=== PATIENT | male | born 1965 | race Caucasian/White ===

== ENCOUNTER → 2016-11-27 | Outpatient (CLI) | payer SELFPAY ==
--- NOTE | 2016-11-27 15:52 | CT ---
EXAMINATION TYPE: CT heart w calcium score DATE OF EXAM: 11/27/2016 3:36 PM COMPARISON: NONE HISTORY: Screening for cardiovascular disorder. 213.9 CT DLP: 34.6 mGy Automated exposure control for dose reduction was used. CT CALCIUM SCORING Coronary calcium is a marker for plaque (fatty deposits) in a blood vessel or atherosclerosis (harden ing of the arteries). The presence and amount of calcium detected in a coronary artery by the CT sca n, indicates the presence and amount of atherosclerotic plaque. These calcium deposits appear years before the development of heart disease symptoms such as chest pain and shortness of breath. A calcium score is computed for each of the coronary arteries based upon the volume and density of th e calcium deposits. This can be referred to as your calcified plaque burden. It does not correspond directly to the percentage of narrowing in the artery but does correlate with the severity of the un derlying coronary atherosclerosis. PROCEDURE TECHNIQUE - Prospective Gating was used. Slice thickness: 3mm. Density threshold (HU): 130, Pixel threshold: 3, Algorithm: discrete. RESULTS Region Calcium Score ([place]) Volume (mm3) Mass (g) LM 0 0 0 RCA 0 0 0 LAD 68 16 13.7 CX 4 6 1.1 PDA Total 72 66 14.9 TOTAL CALCIUM SCORE 72 IMPRESSION: Calcium Score: 72 Implication: Definite, at least mild atherosclerotic plaque with mild minimal coronary narrowings kristin conn Risk of Coronary Artery Disease: Minimal or mild coronary narrowings likely.
== END | disposition home or self-care (01) ==
LOC: EDBD → RADCTMAIN 15:11 → MERGE 15:11
PROVIDERS: ATTEND Radiology Diagnostic Radiology
DX: Z13.6 Encounter for screening for cardiovascular disorders (principal)

== ENCOUNTER → 2016-11-29 | Outpatient (CLI) | payer BC ==
--- NOTE | 2016-11-29 11:27 | EST ---
DATE OF SERVICE: 11/29/2016 AGE: 50Y SEX: M HT: 5'6" WT: 146 lbs. Protocol Ronal: X Other: Cardiolite Stress Stage: 4 Dur. of Exercise: 13:00 *Heart Rate Blood Pressure *Rest: 98 Rest: 151/80 * *Max. Achieved: 177 Maximum BP: 191/73 85% PMHR: 146 100% PMHR: 172 *METS: 13.5 INDICATIONS: Abnormal Burt. score MEDICATIONS: - CLINICAL INFORMATION: Mild increase in Burt. score of 72 and family history of coronary artery disease. Otherwise, no other risk factors other than age and gender. Resting ECG shows sinus rhythm, rate of 98 beats per minute, TX interval of 0.16, QRS of 0.08, normal ST-T waves. Utilizing a standard Ronal protocol, a symptom-limited treadmill test was performed. Patient exercised for total of 13 minutes, attained a peak heart rate of 177 beats per minute which is approximately 102% predicted maximal heart rate without any chest pain or pressure or ST segment deviations indicative of ischemia in any of the monitoring 12 leads. IMPRESSION: 1. Baseline rhythm is sinus with normal TX intervals, normal ST-T waves. 2. Negative exercise treadmill test at 102% predicted maximal heart rate. 3. Nuclear scintigrams to follow from Radiology Department.
--- NOTE | 2016-11-29 11:32 | NM ---
EXAMINATION TYPE: NM stress cardiolite complete DATE OF EXAM: 11/29/2016 11:17 AM COMPARISON: NONE HISTORY: Abnormal cardiac calcium score, chest pain TECHNIQUE: After the intravenous administration of 11 mCi Tc 99m Sestamibi - Rest images obtained 45 minutes post injection. The patient exercised using a MYLES protocol and 1 minute prior to peak ex ercise was injected with 27.1 mCi Tc 99m Sestamibi - Stress images obtained 10 minutes post injection . FINDINGS: Targeted heart rate was achieved during performance of the study. Review of stress and rest SPECT crow ges demonstrates no distinct perfusion abnormality. Gated analysis shows normal wall motion with an estimated left ventricular ejection fraction of 55 %. No fixed or reversible perfusion defects are evident. Gated wall motion is normal. Polar maps are nor mal. Note is made of PVCs during the exam. IMPRESSION: 1. No stress-induced ischemic changes. 2. Note was made of PVCs during the exam.
== END | disposition home or self-care (01) ==
LOC: RADNMMAIN 09:30
PROVIDERS: ATTEND Radiology Diagnostic Radiology
DX: R07.9 Chest pain, unspecified (principal)
CPT/HCPCS: 93017; 78452; A9500; 36415; 80061; 83695; 83880

== ENCOUNTER → 2016-11-29 | Outpatient (CLI) | payer BC ==
[2016-11-29 08:51] LABS: Cholesterol 185 mg/dL (<200); HDL Cholesterol 56 mg/dL (40-60); Triglycerides 100 mg/dL (<150)
== END ==
LOC: LABWHC1 07:53
PROVIDERS: ATTEND Radiology Diagnostic Radiology
DX: E78.00 Pure hypercholesterolemia, unspecified (principal)
CPT/HCPCS: 36415; 80061; 83695; 83880